=== PATIENT | female | born 1960 | race Caucasian/White ===

== ENCOUNTER 2017-03-27 17:16 | Emergency (ER) | payer SELFPAY ==
[2017-03-27 17:30] VITALS: BP 139/77; PULSE 65; RESP 20; TEMP 98.7; O2SAT 99
--- NOTE | 2017-03-27 17:42 | ED PDOC ---
Upper Extremity Pain/Injury Time Seen by Provider: 03/27/17 17:20 Chief Complaint (Nursing): Upper Extremity Problem/Injury Chief Complaint (Provider): Arm pain History Per: Patient Additional Complaint(s): 56 yo female, PMH of HTN, presents to ED with complaints of right shoulder pain and limited range of motion x 3 months, every since a mechanical fall at work. Pt was never evaluated after fall, no XRs obtained. Pt has been using Bengay without relief. Past Medical History Reviewed: Nursing Documentation, Vital Signs Vital Signs: Last Vital Signs Temp 98.7 F 03/27/17 17:28 Pulse 65 03/27/17 17:28 Resp 20 03/27/17 17:28 BP 139/77 03/27/17 17:28 Pulse Ox 99 03/27/17 17:28 - Medical History PMH: HTN - Surgical History Surgical History: No Surg Hx - Family History Family History: States: No Known Family Hx - Living Arrangements Living Arrangements: With Family - Social History Current smoker - smoking cessation education provided: No Alcohol: None Drugs: Denies - Home Medications Home Medications: Ambulatory Orders Medication Instructions Recorded Ibuprofen [Motrin] 600 mg PO Q6 #20 tab 03/27/17 oxyCODONE/Acetaminophen [Percocet 1 ea PO Q6 PRN #5 tab 03/27/17 5/325 mg Tab] - Allergies Allergies/Adverse Reactions: Allergies Allergy/AdvReac Type Severity Reaction Status Date / Time No Known Allergies Allergy Verified 03/27/17 17:30 Review of Systems ROS Statement: Except As Marked, All Systems Reviewed And Found Negative Musculoskeletal: Positive for: Shoulder Pain Physical Exam - Reviewed Nursing Documentation Reviewed: Yes Vital Signs Reviewed: Yes - Physical Exam Appears: Positive for: Well, Non-toxic, No Acute Distress Head Exam: Positive for: ATRAUMATIC, NORMAL INSPECTION, NORMOCEPHALIC Skin: Positive for: Normal Color, Warm, DRY Eye Exam: Positive for: EOMI, Normal appearance, PERRL ENT: Positive for: Normal ENT Inspection Neck: Positive for: Normal, Painless ROM Cardiovascular/Chest: Positive for: Regular Rate, Rhythm Respiratory: Positive for: CNT, Normal Breath Sounds Gastrointestinal/Abdominal: Positive for: Normal Exam, Bowel Sounds, Soft Back: Positive for: Normal Inspection Extremity: Positive for: Tenderness, Other ((+) limited abduction due to pain.limited internal rotation). Negative for: Deformity, Swelling Neurologic/Psych: Positive for: Alert, Oriented - ECG O2 Sat by Pulse Oximetry: 99 Medical Decision Making Medical Decision Making: XR: NAd, as read by RITO medicated with Motrin PO Pt placed in shoulder sling and supportive care measures discussed. advised to follow up with ortho, return to ED with any concerns Disposition - Clinical Impression Clinical Impression: Shoulder pain, Bursitis, Tendonitis - Patient ED Disposition Is Patient to be Admitted: No - Disposition Referrals: Niall Ho III, MD [Staff Provider] - Disposition: Routine/Home Disposition Time: 18:32 Condition: STABLE Prescriptions: Ibuprofen [Motrin] 600 mg PO Q6 #20 tab oxyCODONE/Acetaminophen [Percocet 5/325 mg Tab] 1 ea PO Q6 PRN #5 tab PRN Reason: Pain, Severe (8-10) Instructions: Shoulder Bursitis (ED), Calcific Tendinitis (ED) Forms: [facility] (Lithuanian) - POA Present On Arrival: None
--- NOTE | 2017-03-28 09:13 | RAD ---
PROCEDURE: Radiographs of the right humerus. HISTORY: pain s/p fall 2 m ago COMPARISON: None. FINDINGS: BONES: Bone alignment and mineralization are normal. No acute fracture or focal lesion. SOFT TISSUES: Normal. OTHER FINDINGS: None. IMPRESSION: No acute fracture or dislocation.
--- NOTE | 2017-03-28 09:18 | RAD ---
PROCEDURE: Radiographs of the Right Shoulder HISTORY: Pain s/p fall 2 m ago COMPARISON: No prior. FINDINGS: BONES: Bone alignment and mineralization are normal. No acute fracture. JOINTS: Normal. Glenohumeral and acromioclavicular joints preserved. SOFT TISSUES: Normal. OTHER FINDINGS: None. IMPRESSION: No acute fracture or dislocation.
== END 2017-03-27 18:38 | disposition home or self-care (01) ==
LOC: H.ER 17:16
DX: M75.51 Bursitis of right shoulder (principal); M77.9 Enthesopathy, unspecified; I10 Essential (primary) hypertension